=== PATIENT | male | born 1945 | race Caucasian/White ===

== ENCOUNTER → 2024-03-16 09:41 | Outpatient (CLI) | payer MEDICARE, SELFPAY ==
--- NOTE | 2024-03-16 09:43 | DI.CT.S_ITS ---
PROCEDURE: CT CHEST WO CON INDICATIONS: CURRENT SMOKER/SOB/CRESPO AND WEIGHT LOSS TECHNIQUE: Noncontrast 5 mm thick sections acquired from the pulmonary apices to the posterior costophrenic angles. 1 mm lung window, 5 mm thick coronal and sagittal and 7 mm axial MIP reformats were then acquired. For radiation dose reduction, the following was used: automated exposure control, adjustment of mA and/or kV according to patient size. COMPARISON: None. FINDINGS: Image quality: Diagnostic. Lower Neck: No enlarged lymph nodes. Thyroid: Mild diffuse thyromegaly. No dominant nodule. Axillae: No enlarged lymph nodes. Chest Wall: Unremarkable. Bones: No suspicious bone lesion. Incidental small corticated central defect in the distal sternum. Lungs and Pleura: There is a large area of consolidation in the posterior right upper lobe extending to the hilum and occluding the right upper lobe bronchus. Dominant mass measures about 8.7 x 8.6 by 9.1 cm. There is irregular interstitial thickening in the anterior right upper lobe and superior segment right lower lobe. Similar findings are seen peripherally in the left upper lobe. There are scattered solid subpleural nodules in the right upper, middle, and lower lobes measuring about 9 mm a piece. There is a calcified left apical lung nodule measuring 1.1 cm. There is irregular pleural thickening circumferentially in the right upper lobe. No pleural effusion on either side. Heart: The heart is mildly enlarged with mild coronary artery calcification. No pericardial effusion. Thoracic Vessels: The aorta and pulmonary arteries demonstrate normal size. Mediastinum and Nikole: Borderline enlarged right infrahilar and mediastinal lymph nodes measuring up to 1 cm short axis. There are coarsely calcified left suprahilar lymph nodes Esophagus: No wall thickening. No hiatal hernia. Upper Abdomen: Calcified granulomas in the liver, spleen, and epigastric lymph nodes. Visible portions of upper abdominal organs are otherwise normal. IMPRESSION: Right upper lobe lung mass extending to the hilum highly suspicious for malignancy. Adjacent irregular interstitial opacity and other scattered right lung nodules are suspicious for lymphangitic spread and metastatic disease. Borderline mediastinal lymph nodes seen. No pleural effusion. Evidence of healed granulomatous disease. Mild diffuse thyromegaly. Correlate with lab values. Dictated by: Janny Miller M.D. on 03/16/2024 at 12:08 Approved by: Janny Miller M.D. on 03/16/2024 at 12:20
== END ==
PROVIDERS: PCP Family Medicine; Referring Provider Family Medicine; Visit Provider Family Medicine
DX: E01.0 Iodine-deficiency related diffuse (endemic) goiter (principal); I51.7 Cardiomegaly; I25.10 Atherosclerotic heart disease of native coronary artery without angina pectoris; R06.02 Shortness of breath; R91.8 Other nonspecific abnormal finding of lung field; F17.200 Nicotine dependence, unspecified, uncomplicated; R06.09 Other forms of dyspnea; R63.4 Abnormal weight loss
CPT/HCPCS: 71250

== ENCOUNTER 2024-06-04 17:09 | Inpatient (IN) | payer MEDICARE, SELFPAY ==
[2024-06-04] VITALS (15 sets, daily range): BP systolic 125–163; BP diastolic 60–90; PULSE 85–112; RESP 17–38; TEMP 36.2–37; O2SAT 92–100; BMI 18.8; BMI 18.2
--- NOTE | 2024-06-04 17:26 | DI.CT.S_ITS ---
PROCEDURE: CT CERVICAL SPINE WO CON INDICATIONS: fall TECHNIQUE: Noncontrast 3 mm thick sections acquired from the skull base to the T4 level. Sagittal and coronal reformats were then constructed. For radiation dose reduction, the following was used: automated exposure control, adjustment of mA and/or kV according to patient size. COMPARISON: None. FINDINGS: Image quality: Excellent. Bones: No fractures or dislocations. Visualized superior ribs are intact. Multilevel degenerative disc space narrowing most severe at C4-5, C5-6 and C6-7. Soft tissues: Prevertebral soft tissues are normal in thickness. No paravertebral hematomas. No apical pneumothoraces. Partially visualized opacification of the right apex, unchanged. IMPRESSION: No displaced fracture or traumatic subluxation. Dictated by: Sandie Echeverria M.D. on 06/04/2024 at 18:25 Approved by: Sandie Echeverria M.D. on 06/04/2024 at 18:26
--- NOTE | 2024-06-04 17:26 | DI.CT.S_ITS ---
PROCEDURE: CT HEAD/BRAIN WO CON INDICATIONS: fall TECHNIQUE: Noncontrast 4.5 mm thick angled axial sections acquired from the foramen magnum to the vertex, with coronal and sagittal reformats. For radiation dose reduction, the following was used: automated exposure control, adjustment of mA and/or kV according to patient size. COMPARISON: [facility], CT, CT CERVICAL SPINE WO CON, 06/04/2024, 17:32. [facility], MR, MR BRAIN WITH/WITHOUT CONTRAST, 05/25/2024, 10:37. FINDINGS: Image quality: Diagnostic. CSF spaces: Basal cisterns are patent. No extra-axial fluid collections. The ventricles are symmetric in size and shape. Brain: No intracranial bleeds or masses. There is cerebral volume loss for age, with resultant ventricular and sulcal prominence. There are periventricular and deep white matter chronic small vessel ischemic changes. There is intracranial internal carotid artery atherosclerosis. Skull and face: Calvarium and visualized facial bones appear intact, without suspicious lesions. Sinuses: Visualized sinuses and mastoids are clear. IMPRESSION: 1. No acute intracranial process. 2. Moderate atrophy and chronic microvascular ischemic changes. Dictated by: Sandie Echeverria M.D. on 06/04/2024 at 18:24 Approved by: Sandie Echeverria M.D. on 06/04/2024 at 18:24
--- NOTE | 2024-06-04 17:27 | DI.CT.S_ITS ---
PROCEDURE: CT ANGIO CHEST PE PROTOCOL INDICATIONS: hypoxia lung cancer fall TECHNIQUE: After the administration of intravenous contrast, 2 mm thick sections acquired from the pulmonary apices to the posterior costophrenic angles. 3-dimensional maximum intensity projection (MIP) coronal and sagittal reformats were then acquired through the thorax. For radiation dose reduction, the following was used: automated exposure control, adjustment of mA and/or kV according to patient size. COMPARISON: [facility], CT, CT CHEST ABDOMEN PELVIS WITH CONTRAST, 05/25/2024, 13:12. FINDINGS: Image quality: Diagnostic. Pulmonary arteries: Pulmonary arteries are normal in size, and demonstrate no intraluminal filling defects to suggest central pulmonary embolism. Lower Neck: No enlarged lymph nodes. Thyroid: No thyroid nodules which require sonographic follow up, per consensus guidelines. Axillae: No enlarged lymph nodes. Chest Wall: Unremarkable. Bones: Unremarkable. Lungs and Pleura: Right upper lobe mass extending to the hilum and lateral mediastinum measuring 8.8 x 9.0 cm compared to 9.0 x 8.9 cm. Satellite lesions are stable. Overall appearance mild increased vascularity. Heart: Heart size is normal. No pericardial effusion. Thoracic Vessels: No aortic aneurysm. Mediastinum and Nikole: No enlarged lymph nodes. Esophagus: No wall thickening. Minimal hiatal hernia. Upper Abdomen: Calcifications are present within the spleen and liver possibly related to prior granulomatous exposure. Ill-defined hepatic masses corresponding to lesions identified on prior exam appears stable within visualized portions. Gallstones are present. Otherwise, visualized upper abdomen solid organs and bowel loops appear normal. IMPRESSION: No pulmonary embolus. Unchanged appearance right upper lobe/hilar mass. Dictated by: Sandie Echeverria M.D. on 06/04/2024 at 18:46 Approved by: Sandie Echeverria M.D. on 06/04/2024 at 18:51
--- NOTE | 2024-06-04 17:27 | DI.RAD.S_ITS ---
PROCEDURE: XR CHEST 1V INDICATIONS: short of breath TECHNIQUE: One view of the chest was acquired. COMPARISON: [facility], CT, CT CHEST ABDOMEN PELVIS WITH CONTRAST, 05/25/2024, 13:12. FINDINGS: Surgical changes and devices: Left Port-A-Cath is unchanged. Lungs and pleura: There is opacification of the right apex. This is unchanged compared to prior exam. Mediastinum: Mediastinal contours appear normal. Heart size is enlarged. Bones and chest wall: No suspicious bony lesions. Overlying soft tissues appear unremarkable. IMPRESSION: Stable interval exam demonstrating opacification of the right apex. Dictated by: Sandie Echeverria M.D. on 06/04/2024 at 17:46 Approved by: Sandie Echeverria M.D. on 06/04/2024 at 17:48
--- NOTE | 2024-06-04 17:30 | EKG_ITS ---
[address] [address] Test Date: 2024-06-04 Pat Name: Zeke Valenzuela Department: Room: Gender: Male [employer] Eligibility Assistant: KEL : 1945 Requested By: Order Number: [id number] Reading MD: Angel Meeks Measurements Intervals [place] Rate: 101 P: 76 MI: 156 QRS: -13 QRSD: 96 T: 47 QT: 344 QTc: 446 Interpretive Statements Sinus tachycardia with premature atrial complexes Electronically Signed On 06-05-2024 12:22:04 PDT by Angel Meeks
[2024-06-04] MEDS: ALBUTEROL/IPRATROPIUM 3 ML AMPUL INH ×2 (17:38→18:17)
--- NOTE | 2024-06-04 17:43 | ED_ITS ---
HPI - Fall General Chief Complaint: Fall Stated Complaint: GLF/Tachypnea Time Seen by Provider: 06/04/24 17:10 Source: patient and EMS Mode of arrival: EMS History of Present Illness HPI Narrative: Patient 78-year-old male history of COPD 60 year pack smoking history new diagnosis of lung CA supposed to start chemotherapy with [place] this week presents today is a ground level fall. He reports that he has had some increasing shortness of breath over the last few years maybe it has a little worse over last couple of days. He got tripped up in his pants he tripped and fell forward and hit his head. No loss of consciousness no nausea or vomiting. He did have had looks like he hit his nose in his right hand as well. He has no hip pain leg pain or other injury. He was noted to be slightly tachypneic per EMS. He denies any sort of chest pain not on anticoagulation no fever. [place] cell [id number] Related Data Home Medications Medication Instructions Recorded Confirmed albuterol sulfate 90 mcg/actuation 2 puff inhalation 3XD PRN Dyspnea 06/04/24 06/04/24 aerosol inhaler olanzapine 2.5 mg tablet 2.5 mg PO ONCE PM 06/04/24 06/04/24 Allergies Allergy/AdvReac Type Severity Reaction Status Date / Time No Known Drug Allergies Allergy Verified 06/04/24 17:35 Patient History Social History household members: spouse Smoking Status: Former smoker alcohol intake: current Smoking Status: Former smoker alcohol intake frequency: 0-2 drinks per day Substance Use Type: does not use Exam Initial Vital Signs Initial Vital Signs: Vital Signs Pulse Rate 104 H 06/04/24 17:13 Pulse Oximetry 93 06/04/24 17:13 GENERAL: Alert 70-year-old male thin and in no acute distress. HEENT: Head atraumatic, minor facial abrasions no significant laceration EOMI, pupils reactive, face symmetric, moist mucous membranes CARDIOVASCULAR: Regular rate and rhythm without murmurs, rubs or gallops. RESPIRATORY: Coarse breath sounds bilaterally mild tachypnea ABDOMEN: Soft, nontender. Normoactive bowel sounds all 4 quadrants. No guarding or rebound. EXTREMITIES: Normal range of motion, no clubbing or edema. Neurovascularly intact NEUROLOGICAL: Alert and oriented x4.Normal gait and speech. SKIN: Warm, dry, no laceration, no petechiae, no rashes or lesions. Course Orders Ordered: ED Orders 06/04/24 17:26 CT cervical spine wo con Stat CT head/brain wo con Stat 06/04/24 17:27 CT angio chest PE protocol Stat XR chest 1V Stat EKG-12 Lead Stat 06/04/24 17:49 Complete Blood Count AUTO DIFF Stat Comprehensive Metabolic Panel Stat Lipase Stat NT-proBNP (BNP-Adult 18+) Stat Troponin & CK Cardiac Panel Stat Acetaminophen (Acetaminophen 325 Mg Tablet) 650 mg PO Q6H PRN PRN Reason: Fever/Mild Pain (1-3) Albuterol/Ipratropium (Albuterol/Ipratropium 3 Ml Ampul) 3 ml INH RTQ4HR PRN PRN Reason: Shortness Of Breath Furosemide (Furosemide 20 Mg/2 Ml Vial) 20 mg IV BID APRIL Potassium Chloride/Sodium Chloride (Ns With Kcl 20 Meq) 1,000 mls @ 84 mls/hr IV CONT APRIL Last Admin: 06/04/24 22:34 Dose: 84 mls/hr Documented By: BARB Morphine Sulfate (Morphine 4 Mg/Ml Inj) 3 mg IV Q2HR PRN PRN Reason: Pain, Severe (7-10) Naloxone HCl (Naloxone 0.4 Mg/Ml Vial) 0.2 mg IV Q2MIN PRN PRN Reason: Opiate Reversal Ondansetron HCl (Ondansetron 4 Mg/2 Ml Inj) 4 mg IV Q8HR PRN PRN Reason: Nausea And Vomiting Discontinued Medications Albuterol/Ipratropium (Albuterol/Ipratropium 3 Ml Ampul) 3 ml INH NOW ONE Stop: 06/04/24 17:35 Last Admin: 06/04/24 17:38 Dose: 3 ml Documented By: ALBERT Albuterol/Ipratropium (Albuterol/Ipratropium 3 Ml Ampul) 3 ml INH NOW ONE Stop: 06/04/24 17:50 Last Admin: 06/04/24 18:17 Dose: 3 ml Documented By: OLIVIA Calcitonin Spring (Calcitonin,Spring 400 Units/2 Ml Mdv) 300 units SUBCUT NOW ONE Stop: 06/04/24 20:06 Last Admin: 06/04/24 20:42 Dose: 300 units Documented By: LAURA Furosemide (Furosemide 40 Mg/4 Ml Vial) 40 mg IV NOW ONE Stop: 06/04/24 20:06 Last Admin: 06/04/24 20:38 Dose: 40 mg Documented By: LAURA Sodium Chloride (Normal Saline 0.9%) 1,000 mls @ 1,000 mls/hr IV BOLUS ONE Stop: 06/04/24 20:00 Last Infusion: 06/04/24 20:22 Dose: Infused Documented By: Admin: 06/04/24 19:15 Dose: 1,000 mls/hr Documented By: LAURA Zoledronic Acid 4 mg/ Sodium (Chloride) 105 mls @ 315 mls/hr IV NOW ONE Stop: 06/04/24 20:06 Last Infusion: 06/04/24 22:38 Dose: Infused Documented By: Admin: 06/04/24 21:26 Dose: 315 mls/hr Documented By: JORGE Sodium Chloride (Normal Saline 0.9%) 1,000 mls @ 150 mls/hr IV CONT APRIL Last Infusion: 06/04/24 22:34 Dose: 0 mls/hr Documented By: Admin: 06/04/24 21:29 Dose: 150 mls/hr Documented By: JORGE Vital Signs Vital signs: Vital Signs - 8 hr 06/04/24 17:13 06/04/24 17:16 06/04/24 17:16 Temperature Pulse Rate 104 H 101 H Respiratory Rate Blood Pressure 143/78 H Pulse Oximetry 93 93 Oxygen Delivery Method Oxygen Flow Rate Fraction of Inspired Oxygen 06/04/24 17:25 06/04/24 17:30 06/04/24 17:30 Temperature 98.6 F Pulse Rate 101 H 101 H Respiratory Rate 30 H 29 H Blood Pressure 143/78 H 162/90 H Pulse Oximetry 92 93 Oxygen Delivery Method Room Air Room Air Oxygen Flow Rate Fraction of Inspired Oxygen 06/04/24 17:38 06/04/24 18:04 06/04/24 18:17 Temperature Pulse Rate 100 H 94 H 99 H Respiratory Rate 28 H 38 H Blood Pressure Pulse Oximetry 94 96 Oxygen Delivery Method Room Air Room Air Oxygen Flow Rate 0 Fraction of Inspired Oxygen 21 06/04/24 18:30 06/04/24 18:45 06/04/24 18:45 Temperature Pulse Rate 98 H 112 H Respiratory Rate 31 H 32 H Blood Pressure 163/73 H Pulse Oximetry 100 96 Oxygen Delivery Method Oxygen Flow Rate Fraction of Inspired Oxygen 06/04/24 19:00 06/04/24 19:00 06/04/24 19:30 Temperature Pulse Rate 95 H Respiratory Rate 29 H Blood Pressure 138/60 139/68 Pulse Oximetry 96 Oxygen Delivery Method Oxygen Flow Rate Fraction of Inspired Oxygen 06/04/24 19:30 06/04/24 20:00 06/04/24 20:00 Temperature Pulse Rate 87 85 Respiratory Rate 30 H 30 H Blood Pressure 125/62 Pulse Oximetry 95 95 Oxygen Delivery Method Oxygen Flow Rate Fraction of Inspired Oxygen MDM - Fall Lab Data 06/04/24 17:49 06/04/24 17:49 Labs: Lab Results 06/04/24 Range/Units 17:49 WBC 10.4 (4.5-11.0) X10^3/uL RBC 3.60 L (4.5-5.9) X10^6/uL Hgb 10.2 L (13.5-17.5) g/dL Hct 31.1 L (41-53) % MCV 86.3 (80-100) fL MCH 28.4 (26-34) PG MCHC 33.0 (30-36) % RDW 15.1 H (11.6-14.8) % Plt Count 317 (150-400) X10^3/uL Neut % (Auto) 83.4 H (50-75) % Lymph % (Auto) 8.3 L (25-40) % [place] % (Auto) 7.1 (3-14) % Eos % (Auto) 0.5 L (2-4) % Baso % (Auto) 0.7 (0-2) % Neut # (Auto) 8700 H (2479-7837) /uL Lymph # (Auto) 900 L (5562-8093) /uL [place] # (Auto) 700 (0-900) /uL Eos # (Auto) 0 (0-450) /uL Baso # (Auto) 100 (0-100) /uL Sodium 137 (137-145) mmol/L Potassium 3.2 L (3.4-5.1) mmol/L Chloride 100 (98-107) mmol/L Carbon Dioxide 32 (22-32) mmol/L BUN 23 H (9-20) mg/dL Creatinine 1.30 H (0.66-1.25) mg/dL Estimated GFR 56 L (>60) mL/min BUN/Creatinine Ratio 17.7 (6-22) Glucose 112 H (80-110) mg/dL Calcium 13.2 H* (8.4-10.2) mg/dL Total Bilirubin 0.9 (0.2-1.3) mg/dL AST 21 (17-59) IU/L ALT 19 (<50) IU/L Alkaline Phosphatase 93 (38-126) U/L Total Creatine Kinase 23 L (55-170) U/L Troponin I 0.018 (0.01-0.034) ng/mL NT-Pro-B Natriuret Pep 394 (<450) pg/mL Total Protein 7.0 (6.3-8.2) g/dL Albumin 3.6 (3.5-5.0) g/dL Globulin 3.4 (1.7-4.1) g/dL Albumin/Globulin Ratio 1.1 (1.0-2.8) Lipase 91 (23-300) U/L Imaging Data CT scan - head: Radiologist's Impression: PROCEDURE: CT HEAD/BRAIN WO CON INDICATIONS: fall TECHNIQUE: Noncontrast 4.5 mm thick angled axial sections acquired from the foramen magnum to the vertex, with coronal and sagittal reformats. For radiation dose reduction, the following was used: automated exposure control, adjustment of mA and/or kV according to patient size. COMPARISON: [facility], CT, CT CERVICAL SPINE WO CON, 06/04/2024, 17:32. [facility], MR, MR BRAIN WITH/WITHOUT CONTRAST, 05/25/2024, 10:37. FINDINGS: Image quality: Diagnostic. CSF spaces: Basal cisterns are patent. No extra-axial fluid collections. The ventricles are symmetric in size and shape. Brain: No intracranial bleeds or masses. There is cerebral volume loss for age, with resultant ventricular and sulcal prominence. There are periventricular and deep white matter chronic small vessel ischemic changes. There is intracranial internal carotid artery atherosclerosis. Skull and face: Calvarium and visualized facial bones appear intact, without suspicious lesions. Sinuses: Visualized sinuses and mastoids are clear. IMPRESSION: 1. No acute intracranial process. 2. Moderate atrophy and chronic microvascular ischemic changes. Dictated by: Sandie Echeverria M.D. on 06/04/2024 at 18:24 Approved by: Sandie Echeverria M.D. on 06/04/2024 at 18:24 CT - cervical spine: Radiologist's Impression: PROCEDURE: CT CERVICAL SPINE WO CON INDICATIONS: fall TECHNIQUE: Noncontrast 3 mm thick sections acquired from the skull base to the T4 level. Sagittal and coronal reformats were then constructed. For radiation dose reduction, the following was used: automated exposure control, adjustment of mA and/or kV according to patient size. COMPARISON: None. FINDINGS: Image quality: Excellent. Bones: No fractures or dislocations. Visualized superior ribs are intact. Multilevel degenerative disc space narrowing most severe at C4-5, C5-6 and C6-7. Soft tissues: Prevertebral soft tissues are normal in thickness. No paravertebral hematomas. No apical pneumothoraces. Partially visualized opacification of the right apex, unchanged. IMPRESSION: No displaced fracture or traumatic subluxation. Dictated by: Sandie Echeverria M.D. on 06/04/2024 at 18:25 CT scan - chest: Radiologist's Impression: PROCEDURE: CT ANGIO CHEST PE PROTOCOL INDICATIONS: hypoxia lung cancer fall TECHNIQUE: After the administration of intravenous contrast, 2 mm thick sections acquired from the pulmonary apices to the posterior costophrenic angles. 3-dimensional maximum intensity projection (MIP) coronal and sagittal reformats were then acquired through the thorax. For radiation dose reduction, the following was used: automated exposure control, adjustment of mA and/or kV according to patient size. COMPARISON: [facility], CT, CT CHEST ABDOMEN PELVIS WITH CONTRAST, 05/25/2024, 13:12. FINDINGS: Image quality: Diagnostic. Pulmonary arteries: Pulmonary arteries are normal in size, and demonstrate no intraluminal filling defects to suggest central pulmonary embolism. Lower Neck: No enlarged lymph nodes. Thyroid: No thyroid nodules which require sonographic follow up, per consensus guidelines. Axillae: No enlarged lymph nodes. Chest Wall: Unremarkable. Bones: Unremarkable. Lungs and Pleura: Right upper lobe mass extending to the hilum and lateral mediastinum measuring 8.8 x 9.0 cm compared to 9.0 x 8.9 cm. Satellite lesions are stable. Overall appearance mild increased vascularity. Heart: Heart size is normal. No pericardial effusion. Thoracic Vessels: No aortic aneurysm. Mediastinum and Nikole: No enlarged lymph nodes. Esophagus: No wall thickening. Minimal hiatal hernia. Upper Abdomen: Calcifications are present within the spleen and liver possibly related to prior granulomatous exposure. Ill-defined hepatic masses corresponding to lesions identified on prior exam appears stable within visualized portions. Gallstones are present. Otherwise, visualized upper abdomen solid organs and bowel loops appear normal. IMPRESSION: No pulmonary embolus. Unchanged appearance right upper lobe/hilar mass. Dictated by: Sandie Echeverria M.D. on 06/04/2024 at 18:46 Chest x-ray: Radiologist's Impression: PROCEDURE: XR CHEST 1V INDICATIONS: short of breath TECHNIQUE: One view of the chest was acquired. COMPARISON: [facility], CT, CT CHEST ABDOMEN PELVIS WITH CONTRAST, 05/25/2024, 13:12. FINDINGS: Surgical changes and devices: Left Port-A-Cath is unchanged. Lungs and pleura: There is opacification of the right apex. This is unchanged compared to prior exam. Mediastinum: Mediastinal contours appear normal. Heart size is enlarged. Bones and chest wall: No suspicious bony lesions. Overlying soft tissues appear unremarkable. IMPRESSION: Stable interval exam demonstrating opacification of the right apex. Dictated by: Sandie Echeverria M.D. on 06/04/2024 at 17:46 Approved by: Sandie Echeverria M.D. on 06/04/2024 at 17:48 ECG Data Attestation: I personally reviewed and interpreted this ECG as follows: Interpretation: Normal sinus rhythm rate 101 CO interval 156 QRS [address] elevation no priors to compare [facility] Narrative Medical decision making narrative: [facility] CC: Ground level fall Complicating co-morbidities: Smoking history new onset lung cancer, COPD Corroborating data: [ ] Data collected from: [ ] Medical records reviewed: [facility] records are reviewed he sees Oncology he had a bronchoscopy in 05/02/2024, liver Mets noted, calcium 12.2 on 05/25/2024 creatinine 1.0 Differential considered: Pulmonary embolism, COPD, CHF Exam documented above, pertinent findings include: Mild conversational dyspnea Lab Test results independently reviewed as above. Pertinent findings: Calcium 13.2 creatinine 1.3, potassium 3.2 Independently reviewed EKG as above no ischemia Imaging studies independently reviewed: Head CT cervical spine CT chest x-ray CT angio PE, stable right apical mass without traumatic injury Consultations: Dr. Ching, hospitalist updated patient's symptoms test results agrees for admission Treatments: IV fluids, Lasix, calcitonin, Zometa, albuterol Re-evaluations: He initially was having some shortness of breath he was given some albuterol treatments which actually seemed to help quite a lot. Discussion: Patient is 70-year-old male with known lung cancer presenting today with a mechanical fall. He has no traumatic injury masses stable. He is found to be hypercalcemic with MARJORIE. He did have some shortness of breath which resolved pretty quickly some albuterol. He was treated for hypercalcemia and admitted. He is supposed to start chemotherapy this week as [facility]. Attempted to call his who was on her way over from the [facility] but she was not reachable. Critical Care Time Critical Care Time Critical Care Time: Yes Total Critical Care Time: 32 Attestation: The high probability of a clinically significant, sudden or life threatening deterioration of the [cardiovascular] system(s) required my full and direct attention, intervention and personal management. The aggregate critical care time was 32 minutes. This time is in addition to time spent performing reported procedures but includes the following: [x] Data Review and interpretation [x] Patient assessment and monitoring of vital signs [x] Documentation [x] Medication orders and management Discharge Plan Departure Patient Disposition: Admitted As Inpatient Clinical Impression: Hypercalcemia, Lung cancer Admit Date/Time: 06/04/24 20:07 Admit Provider: Jf Ching
[2024-06-04 18:06] LABS: Add Manual Diff / Slide Review NO; Basophils Absolute Auto 100 /uL (0-100); Basophils Percent Auto 0.7 % (0-2); Eosinophils Absolute Auto 0 /uL (0-450); Eosinophils Percent Auto 0.5 % (2-4); Hematocrit 31.1 % (41-53); Hemoglobin 10.2 g/dL (13.5-17.5); Lymphocytes Absolute Auto 900 /uL (1100-4500); Lymphocytes Percent Auto 8.3 % (25-40); Mean Corpuscular Hemoglobin 28.4 PG (26-34); Mean Corpuscular Volume 86.3 fL (80-100); Monocytes Absolute Auto 700 /uL (0-900); Monocytes Percent Auto 7.1 % (3-14); Neutrophils Absolute Auto 8700 /uL (1500-7000); Neutrophils Percent Auto 83.4 % (50-75); Platelet Count 317 X10^3/uL (150-400); Red Cell Distribution Width 15.1 % (11.6-14.8); White Blood Cell Count 10.4 X10^3/uL (4.5-11.0)
[2024-06-04 18:20] LABS: Alanine Aminotransferase 19 IU/L (<50); Albumin 3.6 g/dL (3.5-5.0); Albumin Globulin Ratio 1.1 (1.0-2.8); Alkaline Phosphatase 93 U/L (38-126); Aspartate Aminotransferase 21 IU/L (17-59); BUN Creatinine Ratio 17.7 (6-22); Bilirubin Total 0.9 mg/dL (0.2-1.3); Blood Urea Nitrogen 23 mg/dL (9-20); Carbon Dioxide 32 mmol/L (22-32); Chloride 100 mmol/L (98-107); Creatine Kinase 23 U/L (55-170); Estimated Glomerular Filt Rate 56 mL/min (>60); Globulin 3.4 g/dL (1.7-4.1); Glucose 112 mg/dL (80-110); HEMOLYSIS < 15 (0-50); Lipase 91 U/L (23-300); Potassium 3.2 mmol/L (3.4-5.1); Sodium 137 mmol/L (137-145)
[2024-06-04 18:32] LABS: NT-proBNP (BNP-Adult 18+) 394 pg/mL (<450); Troponin I 0.018 ng/mL (0.01-0.034)
[2024-06-04 18:39] LABS: Calcium 13.2 mg/dL (8.4-10.2)
[2024-06-04] MEDS: SODIUM CHLORIDE 0.9% 1,000 ML 1000 ML IV (19:15)
[2024-06-04] MEDS: FUROSEMIDE 40 MG/4 ML VIAL IV (20:38)
[2024-06-04] MEDS: CALCITONIN,SALMON 400 UNITS/2 ML MDV 300 UNITS SUBCUT (20:42)
[2024-06-04] MEDS: ZOLEDRONIC ACID 4 MG in SODIUM CHLORIDE 0.9% 100 ML 315 MG IV (21:26)
[2024-06-04] MEDS: SODIUM CHLORIDE 0.9% 1,000 ML 150 ML IV (21:29)
[2024-06-04] MEDS: KCL 20 MEQ IN NS 1,000 ML 84 MEQ IV (22:34)
[2024-06-05 02:02] VITALS: BP 156/80; PULSE 92; RESP 16; TEMP 36.2; O2SAT 95
--- NOTE | 2024-06-05 02:04 | PC.NURSE ---
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 Patient ambulated from stretcher to bed w/ 2 PA, pt was very weak and unsteady. Denied generalized pain, dizziness, chest pain, nausea. Appeared SOB on exertion, although patient stated that his breathing felt much improved after breathing treatments. Lung sounds are diminished bilaterally. VSS, O2 saturation 98% on RA. Condom catheter placed, voiding light clear urine. Cont tele monitoring placed. Placed allevyn drsg on right hand skin tear. MD notified of patient arrival and findings. 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
[2024-06-05 05:45] LABS: INR 1.3 (0.9-1.3); Prothrombin Time 14.4 SECONDS (9.4-12.5)
[2024-06-05 05:49] LABS: Alanine Aminotransferase 18 IU/L (<50); Albumin 3.4 g/dL (3.5-5.0); Alkaline Phosphatase 88 U/L (38-126); Aspartate Aminotransferase 19 IU/L (17-59); BUN Creatinine Ratio 16.8 (6-22); Bilirubin Total 0.7 mg/dL (0.2-1.3); Blood Urea Nitrogen 21 mg/dL (9-20); Calcium 11.4 mg/dL (8.4-10.2); Carbon Dioxide 31 mmol/L (22-32); Chloride 102 mmol/L (98-107); Estimated Glomerular Filt Rate 59 mL/min (>60); Globulin 3.3 g/dL (1.7-4.1); Glucose 121 mg/dL (80-110); HEMOLYSIS < 15 (0-50); Magnesium 1.9 mg/dL (1.6-2.3); Potassium 3.3 mmol/L (3.4-5.1); Sodium 140 mmol/L (137-145); Total Protein 6.7 g/dL (6.3-8.2)
[2024-06-05 05:58] LABS: NT-proBNP (BNP-Adult 18+) 378 pg/mL (<450)
[2024-06-05 06:00] VITALS: BP 148/76; PULSE 76; RESP 18; TEMP 36.7; O2SAT 95
--- NOTE | 2024-06-05 06:41 | PM.HP.1 ---
History of Present Illness History of Present Illness Date Patient Seen: 06/04/24 Time Patient Seen: 22:30 Chief complaint: GLF/Tachypnea Narrative: 78 years old male chronic smoker with a history of COPD and a newly diagnosed lung cancer scheduled to start his chemotherapy in the next few days Hospital emergency room status post fall at the ground-level with increasing shortness of breath and generalized weakness. Per , he has lost significant amount of weight and may have tripped on his loose clothing/pants hit his head. No loss of consciousness . denies any blurring diplopia or headache. Breathing is at baseline. Denies any abdominal pain nausea or vomiting. He was noted to be slightly tachypneic at 30 but feels that his breathing is at baseline. Labs in the ED showed calcium level of 13.2, sodium 137, potassium 3.2 BUN of 23 creatinine 1.3 with a BNP of 394. WBC is 10.4 with a hemoglobin of 10.2. CT of the head shows no acute process. CT cervical spine shows no acute process. CT chest shows unchanged appearance of the right upper lobe hilar mass. Patient was initiated on IV fluids/IV Lasix calcitonin Zometa albuterol and admitted for further evaluation [facility] Social History household members: spouse Smoking Status: Former smoker alcohol intake: current Meds Home Medications and Allergies Home Medications Medication Instructions Recorded Confirmed Type albuterol sulfate 90 mcg/actuation 2 puff inhalation 3XD PRN Dyspnea 06/04/24 06/04/24 History aerosol inhaler olanzapine 2.5 mg tablet 2.5 mg PO ONCE PM 06/04/24 06/04/24 History Allergies Allergy/AdvReac Type Severity Reaction Status Date / Time No Known Drug Allergies Allergy Verified 06/04/24 17:35 Review of Systems Review of Systems Narrative: A 12 point review of system is negative unless otherwise stated in history of present illness Exam Vital Signs (past 8 hours): - 06/05/24 02:02 06/05/24 06:00 Temperature 97.1 F L 98.0 F Pulse Rate 92 H 76 Respiratory Rate 16 18 Blood Pressure 156/80 H 148/76 H Pulse Oximetry 95 95 Oxygen Flow Rate 0 0 Fraction of Inspired Oxygen 21 SaO2/FiO2 Ratio 447 Oxygen Delivery Method Room Air Oxygen Flow Rate 0 Narrative Exam Narrative: Patient is awake and able to give a decent history. Lung sounds are diminished bilaterally at the base. No wheezes Objective Labs 06/04/24 17:49 06/05/24 05:20 Labs: Laboratory Results - last 24 hr 06/04/24 06/05/24 17:49 05:20 WBC 10.4 RBC 3.60 L Hgb 10.2 L Hct 31.1 L MCV 86.3 MCH 28.4 MCHC 33.0 RDW 15.1 H Plt Count 317 Neut % (Auto) 83.4 H Lymph % (Auto) 8.3 L [place] % (Auto) 7.1 Eos % (Auto) 0.5 L Baso % (Auto) 0.7 Neut # (Auto) 8700 H Lymph # (Auto) 900 L [place] # (Auto) 700 Eos # (Auto) 0 Baso # (Auto) 100 PT 14.4 H INR 1.3 Sodium 137 140 Potassium 3.2 L 3.3 L Chloride 100 102 Carbon Dioxide 32 31 BUN 23 H 21 H Creatinine 1.30 H 1.25 Estimated GFR 56 L 59 L BUN/Creatinine Ratio 17.7 16.8 Glucose 112 H 121 H Calcium 13.2 H* 11.4 H Magnesium 1.9 Total Bilirubin 0.9 0.7 AST 21 19 ALT 19 18 Alkaline Phosphatase 93 88 Total Creatine Kinase 23 L Troponin I 0.018 NT-Pro-B Natriuret Pep 394 378 Total Protein 7.0 6.7 Albumin 3.6 3.4 L Globulin 3.4 3.3 Albumin/Globulin Ratio 1.1 1.0 Lipase 91 Assessment & Plan Assessment & Plan narrative: 78 years old male chronic smoker with a history of COPD and a newly diagnosed lung cancer scheduled to start his chemotherapy in the next few days Hospital emergency room status post fall at the ground-level with increasing shortness of breath and generalized weakness. Per , he has lost significant amount of weight and may have tripped on his loose clothing/pants hit his head. No loss of consciousness . denies any blurring diplopia or headache. Breathing is at baseline. Denies any abdominal pain nausea or vomiting. He was noted to be slightly tachypneic at 30 but feels that his breathing is at baseline. Labs in the ED showed calcium level of 13.2, sodium 137, potassium 3.2 BUN of 23 creatinine 1.3 with a BNP of 394. WBC is 10.4 with a hemoglobin of 10.2. CT of the head shows no acute process. CT cervical spine shows no acute process. CT chest shows unchanged appearance of the right upper lobe hilar mass. Patient was initiated on IV fluids/IV Lasix calcitonin Zometa albuterol and admitted for further evaluation 1 hypercalcemia. No EKG changes noted at this time. Monitor in the . Reviewed with ED and did receive a dose of Zometa/calcitonin/Lasix with IV fluids. Will continue the IV fluids but watch closely for any fluid overload in addition to Lasix. May need another dose of calcitonin based on the calcium levels and monitor closely 2. Lung cancer newly diagnosed with scheduled chemotherapy in the next few days. Ongoing follow-up with oncology in the outpatient setting 3 COPD with chronic smoking. Breathing at baseline per resume the home inhalers and monitor closely 4. DVT prophylaxis will be with Lovenox Patient will be admitted under inpatient status given the hypercalcemia at risk for life-threatening cardiac arrhythmias with the need for IV fluids/IV Lasix and other intervention. Expected length of stay is greater than 2 midnights Time-Based Coding :: [TOTAL MINUTES] spent with patient and on the chart (including review of chart, obtaining history, exam, reviewing outside data, placing orders, documenting exam and treatment plan, and counseling patient) on [DATE]. Quality VTE Deep Vein Thrombosis/Pulmonary Embolism Present on Admission: No
[2024-06-05] MEDS: CALCITONIN,SALMON 400 UNITS/2 ML MDV 250 UNITS SUBCUT (07:26)
--- NOTE | 2024-06-05 07:36 | PM.PN.1 ---
Subjective Subjective Interval history: From night doctor: 78 years old male chronic smoker with a history of COPD and a newly diagnosed lung cancer scheduled to start his chemotherapy in the next few days Hospital emergency room status post fall at the ground-level with increasing shortness of breath and generalized weakness. Per , he has lost significant amount of weight and may have tripped on his loose clothing/pants hit his head. No loss of consciousness . denies any blurring diplopia or headache. Breathing is at baseline. Denies any abdominal pain nausea or vomiting. He was noted to be slightly tachypneic at 30 but feels that his breathing is at baseline. Labs in the ED showed calcium level of 13.2, sodium 137, potassium 3.2 BUN of 23 creatinine 1.3 with a BNP of 394. WBC is 10.4 with a hemoglobin of 10.2. CT of the head shows no acute process. CT cervical spine shows no acute process. CT chest shows unchanged appearance of the right upper lobe hilar mass. Patient was initiated on IV fluids/IV Lasix calcitonin Zometa albuterol and admitted for further evaluation S: Exam Vital Signs (past 8 hours): - 06/05/24 02:02 06/05/24 06:00 Temperature 97.1 F L 98.0 F Pulse Rate 92 H 76 Respiratory Rate 16 18 Blood Pressure 156/80 H 148/76 H Pulse Oximetry 95 95 Oxygen Flow Rate 0 0 Fraction of Inspired Oxygen 21 SaO2/FiO2 Ratio 447 Oxygen Delivery Method Room Air Oxygen Flow Rate 0 Narrative Exam Narrative: NAD, alert and oriented. Fluent speech. Lungs are clear, normal rate and effort. Heart is regular, no murmur gallop or rub. Abdomen is soft, non distended. Extremities are free of edema. Objective Labs 06/04/24 17:49 06/05/24 05:20 Labs: Laboratory Results - last 24 hr 06/04/24 06/05/24 17:49 05:20 WBC 10.4 RBC 3.60 L Hgb 10.2 L Hct 31.1 L MCV 86.3 MCH 28.4 MCHC 33.0 RDW 15.1 H Plt Count 317 Neut % (Auto) 83.4 H Lymph % (Auto) 8.3 L [place] % (Auto) 7.1 Eos % (Auto) 0.5 L Baso % (Auto) 0.7 Neut # (Auto) 8700 H Lymph # (Auto) 900 L [place] # (Auto) 700 Eos # (Auto) 0 Baso # (Auto) 100 PT 14.4 H INR 1.3 Sodium 137 140 Potassium 3.2 L 3.3 L Chloride 100 102 Carbon Dioxide 32 31 BUN 23 H 21 H Creatinine 1.30 H 1.25 Estimated GFR 56 L 59 L BUN/Creatinine Ratio 17.7 16.8 Glucose 112 H 121 H Calcium 13.2 H* 11.4 H Magnesium 1.9 Total Bilirubin 0.9 0.7 AST 21 19 ALT 19 18 Alkaline Phosphatase 93 88 Total Creatine Kinase 23 L Troponin I 0.018 NT-Pro-B Natriuret Pep 394 378 Total Protein 7.0 6.7 Albumin 3.6 3.4 L Globulin 3.4 3.3 Albumin/Globulin Ratio 1.1 1.0 Lipase 91 PFSH Social History household members: spouse Smoking Status: Former smoker alcohol intake: current Assessment & Plan Assessment & Plan narrative: 1. Hypercalcemia. Present on admission and active. -No EKG changes noted at this time. Monitor in the . Reviewed with ED and did receive a dose of Zometa/calcitonin/Lasix with IV fluids. Will continue the IV fluids but watch closely for any fluid overload in addition to Lasix. May need another dose of calcitonin based on the calcium levels and monitor closely 2. Lung cancer newly diagnosed with scheduled chemotherapy in the next few days. Present on admission and active. -Ongoing follow-up with oncology in the outpatient setting 3 COPD with chronic smoking. Present on admission and active. -Breathing at baseline per resume the home inhalers and monitor closely DVT prophylaxis will be with Lovenox Patient will be admitted under inpatient status given the hypercalcemia at risk for life-threatening cardiac arrhythmias with the need for IV fluids/IV Lasix and other intervention. Expected length of stay is greater than 2 midnights Time-Based Coding :: [TOTAL MINUTES] spent with patient and on the chart (including review of chart, obtaining history, exam, reviewing outside data, placing orders, documenting exam and treatment plan, and counseling patient) on [DATE]. Quality VTE Deep Vein Thrombosis/Pulmonary Embolism Present on Admission: No
[2024-06-05 08:00] VITALS: BP 151/104; PULSE 92; RESP 14; TEMP 37.4; O2SAT 92
[2024-06-05] MEDS: KCL 20 MEQ IN NS 1,000 ML 84 MEQ IV (09:50)
[2024-06-05] MEDS: FUROSEMIDE 20 MG/2 ML VIAL IV (09:50)
[2024-06-05] MEDS: POTASSIUM CHLORIDE 20 MEQ TAB 40 MEQ PO (09:50)
--- NOTE | 2024-06-05 10:21 | DIET.CONS ---
Dietary Consultation Note Admission Date: 06/04/2024 20:07 Assessment: 78 y M admitted after GLF with increasing SOB and generalized weakness. Nutrition screened for low MNA. Met with pt at bedside who reports weight loss related to decreased appetite and taste changes. Per pt, food tastes all the same and has difficulty eating/skipping meals due to low energy. Is starting chemotherapy for lung cancer this week. Diet recall: L-egg, forbes, palauan yogurt, ensure enlive D-sometimes skips or <50% of plate (meat, grain, vegetable - cooks) Nutrition focused physical exam: -Severe muscle wasting: temporalis, deltoid, pectoralis, trapezius, interosseous -Severe subcutaneous fat loss: buccal and orbital fat pads Ht: 193.04 cm Wt: 68 kg BMI: 18.2 UBW: 88.64 kg per pt beginning of April (-20% weight loss in 3 months, severe) Last BM: 06/05/24 (06/05/24 08:00) MNA: 4 Gomez Score: 21 Diet: 06/05/24 Breakfast General (Regular) Diet Diet Modifications: Labs: RBC 3.60 X10^6/uL (4.5-5.9) L 06/04/24 17:49 Hgb 10.2 g/dL (13.5-17.5) L 06/04/24 17:49 Hct 31.1 % (41-53) L 06/04/24 17:49 Creatinine 1.25 mg/dL (0.66-1.25) 06/05/24 05:20 NT-Pro-B Natriuret Pep 378 pg/mL (<450) 06/05/24 05:20 Nutrition Diagnosis: Severe acute Protein Calorie Malnutrition r/t increased energy and protein needs, decreased appetite w/ taste changes as evidenced by 20% weight loss within 3 months, (severe), <75% of estimated energy needs for 3 months (severe), severe muscle wasting (temporalis, deltoid, trapezius, pectoralis, interosseous), severe subcutaneous fat loss (buccal and orbital fat pads), lung cancer, BMI 18.2 (underweight for age) The patient is at much higher risk for medical and surgical complications because of their malnutrition. This increases the difficulty and complexity of medical and surgical interventions and increases the chances of poor outcomes such as morbidity and mortality. Interventions: 1. ONS TID 2. Increased energy and protein -Discussed increased needs, use of 2 additional Ensures and high kcal/protein snacks and tips, provided high kcal/high protein nutrition therapy handout EER: [id number] kcals (35 kcal/kg per BMI, starting chemo) 90-105 g protein (1.5 g/kg per PCM) Monitoring/Evaluations: po intakes Electronically Signed by: Ana M Carolina 06/05/24 10:21 Clinical Dietitian [address] [id number]
[2024-06-05 12:00] VITALS: BP 152/90; PULSE 114; RESP 32; TEMP 37.1; O2SAT 90
--- NOTE | 2024-06-05 13:13 | PM.DS.1 ---
History of Present Illness History of Present Illness Date Patient Seen: 06/05/24 Chief complaint: GLF/Tachypnea Narrative: From H&P: 78 years old male chronic smoker with a history of COPD and a newly diagnosed lung cancer scheduled to start his chemotherapy in the next few days Hospital emergency room status post fall at the ground-level with increasing shortness of breath and generalized weakness. Per , he has lost significant amount of weight and may have tripped on his loose clothing/pants hit his head. No loss of consciousness . denies any blurring diplopia or headache. Breathing is at baseline. Denies any abdominal pain nausea or vomiting. He was noted to be slightly tachypneic at 30 but feels that his breathing is at baseline. Labs in the ED showed calcium level of 13.2, sodium 137, potassium 3.2 BUN of 23 creatinine 1.3 with a BNP of 394. WBC is 10.4 with a hemoglobin of 10.2. CT of the head shows no acute process. CT cervical spine shows no acute process. CT chest shows unchanged appearance of the right upper lobe hilar mass. Patient was initiated on IV fluids/IV Lasix calcitonin Zometa albuterol and admitted for further evaluation. Discharge Providers Provider Date of admission: 06/04/24 20:07 Discharge Date: 06/05/24 Primary care physician: Melissa Yanes MD Consults: None. Discharge provider: Angel Meeks MD Summary Hospital Course Discharge Diagnosis: 1. Hypercalcemia. Present on admission and improved. 2. Lung cancer newly diagnosed with scheduled chemotherapy in the next few days. Present on admission and active. 3. COPD, present on admission and stable. 4. Tobacco dependence, present on admission and active. 5. Severe acute Protein Calorie Malnutrition r/t increased energy and protein needs, decreased appetite w/ taste changes as evidenced by 20% weight loss within 3 months, (severe), <75% of estimated energy needs for 3 months (severe), severe muscle wasting (temporalis, deltoid, trapezius, pectoralis, interosseous), severe subcutaneous fat loss (buccal and orbital fat pads), lung cancer, BMI 18.2 (underweight for age) Hospital Course: The patient was admitted with hypercalcemia and hypokalemia. The patient was treated with Zometa and calcitonin as well as IV fluids and forced diuresis and had good improvement of the calcium. Patient required potassium replacement. The patient had a chemotherapy planning session scheduled for 1500 on June 05 and did want to make this. An electronic message was sent to his oncologist at [facility], Dr. Sloan. The patient is improved to the point that I feel he is all right to discharge and go to his planning appointment. The patient will be given discharge instructions detail in good hydration and low calcium diet. In addition the oncologist is asked to provide whatever other details to the plan that he feels are appropriate. Status at Discharge Cognitive/behavioral status at discharge: oriented Functional status at discharge: independent ambulation Overall status at discharge: patient is back to baseline Time Spent with Patient Time spent: Greater than 30 minutes Exam Vital Signs (past 8 hours): - 06/05/24 06:00 06/05/24 08:00 06/05/24 12:00 Temperature 98.0 F 99.3 F 98.8 F Pulse Rate 76 92 H 114 H Respiratory Rate 18 14 32 H Blood Pressure 148/76 H 151/104 H 152/90 H Pulse Oximetry 95 92 90 L Oxygen Flow Rate 0 0 0 Fraction of Inspired Oxygen 21 SaO2/FiO2 Ratio 447 Oxygen Delivery Method Room Air Oxygen Flow Rate 0 Narrative Exam Narrative: NAD, alert and oriented. Fluent speech.Cachectic. Lungs are clear, normal rate and effort. Heart is regular, no murmur gallop or rub. Abdomen is soft, non distended. Extremities are free of edema. Objective Imaging Chest x-ray: Radiologist's impression: Stable interval exam demonstrating opacification of the right apex. CT scan - chest: Radiologist's impression: Pulmonary arteries: Pulmonary arteries are normal in size, and demonstrate no intraluminal filling defects to suggest central pulmonary embolism. Lower Neck: No enlarged lymph nodes. Thyroid: No thyroid nodules which require sonographic follow up, per consensus guidelines. Axillae: No enlarged lymph nodes. Chest Wall: Unremarkable. Bones: Unremarkable. Lungs and Pleura: Right upper lobe mass extending to the hilum and lateral mediastinum measuring 8.8 x 9.0 cm compared to 9.0 x 8.9 cm. Satellite lesions are stable. Overall appearance mild increased vascularity. Heart: Heart size is normal. No pericardial effusion. Thoracic Vessels: No aortic aneurysm. Mediastinum and Nikole: No enlarged lymph nodes. Esophagus: No wall thickening. Minimal hiatal hernia. Upper Abdomen: Calcifications are present within the spleen and liver possibly related to prior granulomatous exposure. Ill-defined hepatic masses corresponding to lesions identified on prior exam appears stable within visualized portions. Gallstones are present. Otherwise, visualized upper abdomen solid organs and bowel loops appear normal. IMPRESSION: No pulmonary embolus. Unchanged appearance right upper lobe/hilar mass. CT scan - head: Radiologist's impression: 1. No acute intracranial process. 2. Moderate atrophy and chronic microvascular ischemic changes. Labs 06/04/24 17:49 06/05/24 05:20 Labs: Laboratory Results - last 24 hr 06/04/24 06/05/24 17:49 05:20 WBC 10.4 RBC 3.60 L Hgb 10.2 L Hct 31.1 L MCV 86.3 MCH 28.4 MCHC 33.0 RDW 15.1 H Plt Count 317 Neut % (Auto) 83.4 H Lymph % (Auto) 8.3 L [place] % (Auto) 7.1 Eos % (Auto) 0.5 L Baso % (Auto) 0.7 Neut # (Auto) 8700 H Lymph # (Auto) 900 L [place] # (Auto) 700 Eos # (Auto) 0 Baso # (Auto) 100 PT 14.4 H INR 1.3 Sodium 137 140 Potassium 3.2 L 3.3 L Chloride 100 102 Carbon Dioxide 32 31 BUN 23 H 21 H Creatinine 1.30 H 1.25 Estimated GFR 56 L 59 L BUN/Creatinine Ratio 17.7 16.8 Glucose 112 H 121 H Calcium 13.2 H* 11.4 H Magnesium 1.9 Total Bilirubin 0.9 0.7 AST 21 19 ALT 19 18 Alkaline Phosphatase 93 88 Total Creatine Kinase 23 L Troponin I 0.018 NT-Pro-B Natriuret Pep 394 378 Total Protein 7.0 6.7 Albumin 3.6 3.4 L Globulin 3.4 3.3 Albumin/Globulin Ratio 1.1 1.0 Lipase 91 PFSH Social History household members: spouse Smoking Status: Former smoker alcohol intake: current Discharge Assessment & Plan Assessment and Plan Assessment: 1. Hypercalcemia. Present on admission and improved. 2. Lung cancer newly diagnosed with scheduled chemotherapy in the next few days. Present on admission and active. 3. COPD, present on admission and stable. 4. Tobacco dependence, present on admission and active. 5. Severe acute Protein Calorie Malnutrition r/t increased energy and protein needs, decreased appetite w/ taste changes as evidenced by 20% weight loss within 3 months, (severe), <75% of estimated energy needs for 3 months (severe), severe muscle wasting (temporalis, deltoid, trapezius, pectoralis, interosseous), severe subcutaneous fat loss (buccal and orbital fat pads), lung cancer, BMI 18.2 (underweight for age) Plan of Treatment: Calcium did improve from 13.2-11.4. She will be discharged home on a low calcium diet and copious hydration. He will follow up with Oncology later this afternoon for his planning session for chemotherapy which starts on June 08. Discharge Plan Discharge Plan Patient Disposition: Home Provider Discharge Comment: Stable for discharge, we will follow up oncology today. Message sent to oncologist electronically. Discharge orders & Medications Prescriptions: Continued olanzapine 2.5 mg tablet 2.5 mg PO ONCE PM albuterol sulfate 90 mcg/actuation HFA aerosol inhaler 2 puff inhalation 3XD PRN (Reason: Dyspnea) Medication counseling provided by Pharmacist: No Follow up/Referrals: Melissa Yanes MD [Primary Care Provider] - Discharge Health Status Multidrug resistant organism: No MDRO Diet/Activity/Treatments Diet: Diet as Tolerated Diet comment: Avoid high calcium foods. Visit Report/Discharge Packet Instructions: DI for Hypercalcemia Stand Alone Forms: Patient Portal/API Discharge Data Primary Care Provider: Melissa Yanes Quality VTE Deep Vein Thrombosis/Pulmonary Embolism Present on Admission: No
--- NOTE | 2024-06-05 13:18 | CM.DANOTE ---
Initial DCP Assessment Visit Note Reviewed EMR and team rounds for status updates. Met with pt/spouse at bedside to introduce self and role. Pt was found to be resting in bed, appearing comfortable and in no apparent distress. He resides modified independently with his in their own home on [address]. His will be transporting him home later today after his [facility] Oncology appt. They decline and assistance or resource needs for d/c at this time. Payor: [place] [facility] PCP: Melissa Yanes Pt is a 78 year-old M with a PMH of COPD and a new lung cancer diagnosis. He is scheduled to start chemo today at [facility], so will be discharging to that appt shortly. He presented to the ED via EMS after getting caught up in his pants while putting them on and fell flat on his face. He did not have any apparent fractures or lacerations as a result of the fall, however he was found to be hypercalcemic, was started on IV fluids, lasix, and Zometa. He is now medically cleared for d/c and has no further DCP needs. 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 No History Provided By Patient,Significant Other, Medical Record Has Patient been admitted in last 30 No days? Prior Living Arrangements House Household Members spouse Type of transporation used prior to Relies on Others admit Independent with ADL's No: modified independent Comment OP Oncology Comment No identified d/c needs indicated at this time. Barriers to Discharge No Discharge Plan Home Transportation Arrangement Spouse Referrals Initiated None needed Whiteboard Updated in Patient Room with Yes name and ext. # of Slate Roofer Review Status In Process Please Provide Date Initial DC 06/05/24 Assessment Was Performed
== END 2024-06-05 13:46 | disposition home or self-care (01) | DRG 640 ==
LOC: ED 18:14 → AC 20:08
PROVIDERS: Admitting Provider Internal Medicine; Emergency Provider Emergency Medicine; PCP Family Medicine; Referring Provider Emergency Medicine; Visit Provider Internal Medicine
DX: E83.52 Hypercalcemia (principal); E43 Unspecified severe protein-calorie malnutrition; Z68.1 Body mass index [BMI] 19.9 or less, adult; C34.11 Malignant neoplasm of upper lobe, right bronchus or lung; J44.9 Chronic obstructive pulmonary disease, unspecified; F17.200 Nicotine dependence, unspecified, uncomplicated; E87.6 Hypokalemia
CPT/HCPCS: 36415; 70450; 71045; 71275; 72125; 80053; 82550; 83690; 83735; 83880; 84484; 85025; 85610; 93005; 94640; 96372; 96374; 99284; 99291; J0630; J1940; J3489; Q9967